=== PATIENT | female | born 1985 | race Caucasian/White ===

== ENCOUNTER 2017-08-07 01:30 | Inpatient (IN) | payer MEDICAID ==
[~2017-08-07] VITALS: Ht 165.1 cm; Wt 88.5 kg
[2017-08-07 01:34] VITALS: BP 127/86
--- NOTE | 2017-08-07 01:43 | NUR ---
PT TAKEN TO BED 4.
--- NOTE | 2017-08-07 01:44 | NUR ---
32Y F BIB FAMILY C/O SYNCOPE EPISODE AT HOME. FAMILY WAS PRESENT. PT AND FAMILY DENIES ANY LOC. PT AAOX X 4. PT STATES THIS IS FIRST OCCURRANCE. PT DENIES ANY DIARRHEA BUT DID CLAIM SOME NAUSEA AND VOMITING. PT STATES PT HAS ALSO BEEN FEELING DIZZY X 2 DAYS. PT BREATHING IS CLEAR BILAT. PT AMBULATED TO ER BED WITH STEADY GAIT.
--- NOTE | 2017-08-07 01:44 | NUR ---
Luciano rojo in ED - 08/07/17 at 0144 by [facility] Patient being evaluated by Dr. Horan at bedside.
--- NOTE | 2017-08-07 01:44 | NUR ---
Patient being evaluated by Dr. Grossman at bedside.
[2017-08-07] MEDS ORDERED: ONDANSETRON 4 MG/2 ML VIAL IVP ONE (01:50)
[2017-08-07] MEDS ORDERED: NACL 0.9% 1,000 ML IV ONE (01:50)
[2017-08-07 02:06] LABS: HEMATOCRIT 39.6 % (36-48); HEMOGLOBIN 12.7 g/dL (12.0-16.0); MEAN CORPUSCULAR HEMOGLOBIN 27 pg (27-31); MEAN CORPUSCULAR HGB CONC 32 g/dL (33-37); MEAN CORPUSCULAR VOLUME 85 fL (80-94); PLATELET COUNT (AUTO) 350 K/uL (140-450); RED BLOOD CELL COUNT(AUTO) 4.66 MIL/uL (4.20-5.40); RED CELL DISTRIBUTION WIDTH 12.9 % (11.6-13.7)
[2017-08-07 02:16] LABS: APPEARANCE,URINE HAZY (CLEAR); BILIRUBIN,URINE NEGATIVE (NEGATIVE); BLOOD, URINE NEGATIVE (NEGATIVE); COLOR,URINE YELLOW (YELLOW); LEUKOCYTE ESTERASE ,URINE NEGATIVE (NEGATIVE); NITRITE, URINE NEGATIVE (NEGATIVE); PH,URINE 6.5 (5.0-9.0); UGLUCOSE NEGATIVE (NEGATIVE)
[2017-08-07 02:18] LABS: ANION GAP 12.7 (8-16); CARBON DIOXIDE 27.8 mmol/L (21-32); CREATININE 0.9 mg/dL (0.6-1.3); POTASSIUM 3.5 mmol/L (3.5-5.1)
[2017-08-07 02:26] LABS: LYMPHOCYTES % (MANUAL) 10 % (20-46); MONOCYTES % (MANUAL) 4 % (5-12)
[2017-08-07 02:27] LABS: BARBITURATE, URINE NEG. ng/ml (NEG <=200); BENZODIAZEPINE, URINE NEG. ng/mL (NEG <=200); CANNABINOID, URINE NEG. ng/mL (NEG <=50); COCAINE, URINE NEG. ng/mL (NEG <=300); OPIATE, URINE NEG. ng/mL (NEG <=2000); PHENCYCLIDINE SCREEN,URINE NEG. ng/mL (NEG <=25)
--- NOTE | 2017-08-07 02:27 | NUR ---
PT TAKEN TO CT VIA W/C.
--- NOTE | 2017-08-07 02:27 | NUR ---
PT SENT TO CT WITH TECH VIA W/C AAOX4 AT THIS TIME.
[2017-08-07 02:32] LABS: ALBUMIN 3.7 g/dL (3.4-5.0); THYROID STIMULATING HORMONE 1.74 uIU/mL (0.34-3.74); TOTAL BILIRUBIN 0.2 mg/dL (0.0-1.0)
[2017-08-07 02:33] LABS: RBC,URINE 0-5 (RARE) /HPF (0-5)
[2017-08-07 02:34] LABS: FINE GRANULAR CASTS,URINE 0-10 /LPF (None Seen)
--- NOTE | 2017-08-07 02:42 | NUR ---
PT BACK FROM CT.
[2017-08-07 02:45] LABS: ACETAMINOPHEN < 0.5 ug/ml (10-30); SALICYLATE < 2.8 mg/dL (2.8-20.0)
[2017-08-07] MEDS ORDERED: cefTRIAXone 1,000 MG VIAL ONE (03:06)
--- NOTE | 2017-08-07 03:52 | NUR ---
Patient will be admitted to care of DR VALENTIN. Admited to MS 112. Will go to room 112. Belongings list completed. Report to LAURA SOW .
[2017-08-07 04:00] VITALS: BP 107/70
--- NOTE | 2017-08-07 04:00 | NUR ---
PATIENT ADMITTED TO THE UNIT FROM ER. PATIENT IS AWAKE, ALERT, ORIENTED. AMBULATORY. NO SIGNS AND SYMPTOMS OF DISTRESS NOTED. NO COMPLAINTS OF PAIN AT THIS TIME. IV SITE NOTED ON LEFT AC, ASYMPTOMATIC, INTACT AND PATENT. SKIN IS INTACT. BED IN LOWEST POSITION, SIDE RAILS UP AND CALL LIGHT WITHIN REACH. WILL CONTINUE TO MONITOR.
[2017-08-07] MEDS ORDERED: INFLUENZA VIRUS VACCINE QUAD 0.5 ML SYR IMVAC PRN (04:50)
--- NOTE | 2017-08-07 05:00 | NUR ---
CHECKED ON PATIENT. PATIENT SAID SHE WAS HUNGRY. PATIENT ON REGULAR DIET. CHECKED WITH REGIONAL SALES EXECUTIVE FOR AVAILABLE FOOD.
[2017-08-07] MEDS: DEXT 5% / NACL 0.45% 1,000 ML IV SCH ×2 (05:14→19:59)
--- NOTE | 2017-08-07 07:07 | NUR ---
PATIENT REPORT GIVEN TO MORNING NURSE. PATIENT IS IN STABLE CONDITION.
--- NOTE | 2017-08-07 07:15 | NUR ---
RECEIVED PATIENT REPORT FROM NIGHT NURSE. PT ASLEEP AND SHOWED NO S/S OF ACUTE DISTRESS ON ROOM AIR. IV NOTED ON THE LEFT AC, PATENT, INTACT, AND INFUSING WELL. FAMILY MEMBER AT BEDSIDE. BED IN LOW POSITION, CALL LIGHT WITHIN REACH. WILL CONTINUE TO MONITOR.
--- NOTE | 2017-08-07 07:27 | NUR ---
PATIENT HAS BEEN SCREENED AND CATEGORIZED LOW NUTRITION RISK. PATIENT WILL BE SEEN WITHIN 7 DAYS OF ADMISSION. 08/13/[address]
[2017-08-07 09:45] VITALS: BP 103/64
[2017-08-07] MEDS ORDERED: LORazepam 2 MG/ML VIAL IVP PRN (10:30)
[2017-08-07] MEDS ORDERED: ONDANSETRON 4 MG/2 ML VIAL IVP PRN (10:30)
--- NOTE | 2017-08-07 11:00 | NUR ---
PT RESTING IN BED, NO S/S OF ACUTE DISTRESS NOTED. AT BEDSIDE.
[2017-08-07 12:50] LABS: CREATINE KINASE MB 0.1 ng/mL (0-3.6)
--- NOTE | 2017-08-07 13:00 | NUR ---
IV ON THE LEFT AC IS LEAKING, DC'ED, TIP INTACT, PRESSURE APPLIED. STARTED A NEW IV ON THE LEFT HAND, GAUGE 20, ONE ATTEMPT. PT TOLERATED WELL.
--- NOTE | 2017-08-07 15:00 | NUR ---
HELPED PT TO THE RESTROOM. NO ACUTE S/S OF DISTRESS NOTED.
[2017-08-07 16:00] VITALS: BP 111/66
--- NOTE | 2017-08-07 19:31 | NUR ---
PT ENDORSED TO THE EMPLOYEE RELATIONS ADVISOR, REPORT GIVEN AT BEDSIDE. PT IS IN STABLE CONDITION AND NO S/S OF ACUTE DISTRESS.
[2017-08-07] MEDS ORDERED: MECLIZINE 25 MG TAB PO PRN (19:35)
--- NOTE | 2017-08-07 19:35 | NUR ---
RECEIVED HANDOFF REPORT FROM AM RN. PATIENT A&OX4. PATIENT DENIES PAIN, STATES DIZZINESS. MD AWARE. WILL MEDICATE ORDERED. IV SITE PATENT AND INTACT. NO SIGNS OR SYMPTOMS OF ACUTE DISTRESS NOTED. CALL LIGHT WITHIN REACH. WILL CONTINUE TO MONITOR.
--- NOTE | 2017-08-07 21:59 | NUR ---
I HAVE EXPLAINED TO THE PATIENT THE RISKS AND CONSEQUENCES INVOLVED IN LEAVING THE HOSPITAL AT THIS TIME, THE BENEFITS OF CONTINUED TREATMENT AND HOSPITALIZATION, AND THE ALTERNATIVES TO CONTINUED TREATMENT, HOWEVER, PATIENT DECIDED TO LEAVE THE FACILITY ANYWAY DUE TO LACK OF CHILDCARE. AT BEDSIDE. PATIENT IN STABLE CONDITION. NOTIFIED ARMAMENT AIRCRAFT MECHANIC, CHARGE NURSE, PRIMARY MD, GAS REGULATOR REPAIRER HELPER CONSULT, AND NEURO CONSULT.
--- NOTE | 2017-08-08 12:53 | NUR ---
RETRO H&P, ER REPORT AND CONSULT FAXED TO [facility] [phone] PHONE [phone]
== END 2017-08-07 21:57 | disposition left against medical advice (07) | DRG 204 ==
LOC: MED 01:30 → MTU 03:46
PROVIDERS: ADMIT Preventive Medicine Preventive Medicine/Occupational Environmental Medicine; ATTEND Preventive Medicine Preventive Medicine/Occupational Environmental Medicine
DX: R55 Syncope and collapse (principal); N39.0 Urinary tract infection, site not specified; D72.829 Elevated white blood cell count, unspecified; J40 Bronchitis, not specified as acute or chronic; R73.9 Hyperglycemia, unspecified; Z53.21 Procedure and treatment not carried out due to patient leaving prior to being seen by health care provider; Z98.51 Tubal ligation status
CPT/HCPCS: 36415; 70450; 71010; 80053; 80305; 81001; 81025; 82550; 82553; 83605; 83690; 84443; 84484; 85025; 87040; 87081; 87086; 87804; 93005; 93880; 96361; 96365; 96375; 99285; G0480; J0696; J2405; J7030; J7060; J8597; Q0092

== ENCOUNTER 2018-08-10 11:57 | Emergency (ER) | payer MEDICAID ==
[~2018-08-10] VITALS: Ht 165.1 cm; Wt 103.6 kg
[2018-08-10 12:08] VITALS: BP 124/89
[2018-08-10] MEDS ORDERED: KETOROLAC 30 MG/ML VIAL IVP ONE (12:40)
[2018-08-10] MEDS ORDERED: NACL 0.9% 500 ML IV ONE (12:40)
[2018-08-10] MEDS ORDERED: ONDANSETRON 4 MG/2 ML VIAL IVP ONE (12:40)
[2018-08-10 13:33] LABS: BASOPHILS # (AUTO) 0.1 K/uL (0.00-0.22); BASOPHILS % (AUTO) 0.6 % (0.0-2.0); EOSINOPHILS # (AUTO) 0.2 K/uL (0-0.4); EOSINOPHILS % (AUTO) 2.6 % (0.0-4.0); HEMATOCRIT 37.8 % (36-48); HEMOGLOBIN 12.2 g/dL (12.0-16.0); LYMPHOCYTES # (AUTO) 2.6 K/uL (2.5-16.5); LYMPHOCYTES % (AUTO) 29.3 % (20.5-51.1); MEAN CORPUSCULAR HEMOGLOBIN 28 pg (27-31); MEAN CORPUSCULAR HGB CONC 32 g/dL (33-37); MEAN CORPUSCULAR VOLUME 85.2 fL (80-94); MONOCYTES # (AUTO) 0.6 K/uL (0.8-1.0); NEUTROPHILS # (AUTO) 5.4 K/uL (1.8-7.7); NEUTROPHILS % (AUTO) 60.5 % (42.2-75.2); PLATELET COUNT (AUTO) 287 K/uL (140-450); RED BLOOD CELL COUNT(AUTO) 4.43 MIL/uL (4.20-5.40); RED CELL DISTRIBUTION WIDTH 13.8 % (11.6-13.7); WHITE BLOOD COUNT (AUTO) 8.9 K/uL (4.8-10.8)
[2018-08-10 13:41] LABS: ANION GAP 9.5 (8-16); CARBON DIOXIDE 27.2 mmol/L (21-32); CREATININE 0.6 mg/dL (0.6-1.3); POTASSIUM 3.7 mmol/L (3.5-5.1)
[2018-08-10 13:47] LABS: ALBUMIN 3.3 g/dL (3.4-5.0); TOTAL BILIRUBIN 0.2 mg/dL (0.0-1.0)
[2018-08-10 14:45] VITALS: BP 108/65
== END 2018-08-10 14:45 | disposition home or self-care (01) ==
LOC: MED 11:57
DX: R10.9 Unspecified abdominal pain (principal); R11.0 Nausea
CPT/HCPCS: 36415; 71045; 76705; 80053; 81002; 81025; 83690; 85025; 96374; 96375; 99285; J1885; J2405; J7030; Q0092

== ENCOUNTER 2023-04-29 22:23 | Emergency (ER) | payer MEDICAID ==
[~2023-04-29] VITALS: Ht 165.1 cm; Wt 95.3 kg
[2023-04-29 22:27] VITALS: BP 122/81; PULSE 83; RESP 17; TEMP 98.4; O2SAT 99
--- NOTE | 2023-04-29 22:30 | NUR ---
TO LOBBY A/W BED AMBULATORY
--- NOTE | 2023-04-29 23:09 | NUR ---
URINE WALKED TO LAB.
[2023-04-29 23:25] LABS: BASOPHILS # (AUTO) 0.1 K/uL (0.00-0.22); EOSINOPHILS # (AUTO) 0.2 K/uL (0-0.4); EOSINOPHILS % (AUTO) 1.8 % (0.0-4.0); HEMATOCRIT 33.7 % (36-48); HEMOGLOBIN 10.8 g/dL (12.0-16.0); LYMPHOCYTES # (AUTO) 3.5 K/uL (2.5-16.5); LYMPHOCYTES % (AUTO) 30.6 % (20.5-51.1); MEAN CORPUSCULAR HEMOGLOBIN 26 pg (27-31); MEAN CORPUSCULAR HGB CONC 32 g/dL (33-37); MONOCYTES # (AUTO) 0.8 K/uL (0.8-1.0); MONOCYTES % (AUTO) 6.7 % (1.7-9.3); NEUTROPHILS # (AUTO) 6.9 K/uL (1.8-7.7); NEUTROPHILS % (AUTO) 59.9 % (42.2-75.2); PLATELET COUNT (AUTO) 374 K/uL (140-450); RED BLOOD CELL COUNT(AUTO) 4.22 MIL/uL (4.20-5.40); RED CELL DISTRIBUTION WIDTH 15.9 % (11.6-13.7); WHITE BLOOD COUNT (AUTO) 11.5 K/uL (4.8-10.8)
--- NOTE | 2023-04-29 23:37 | NUR ---
PT AMBULATED TO ER BED 9
[2023-04-29 23:39] LABS: ALBUMIN 3.2 g/dL (3.4-5.0); ANION GAP 14.9 (8-16); CARBON DIOXIDE 25.9 mmol/L (21-32); CREATININE 0.7 mg/dL (0.6-1.3); POTASSIUM 3.8 mmol/L (3.5-5.1); TOTAL BILIRUBIN 0.2 mg/dL (0.0-1.0)
[2023-04-29 23:41] VITALS: O2SAT 99
--- NOTE | 2023-04-29 23:44 | NUR ---
37 YO F BIB SELF C/O RUQ ABD PAIN RADIATING TO CENTER ABDOMEN, NAUSEA, DIARRHEA X 2 DAYS. PT ALSO STATES R SHOULDER PAIN X 2 DAYS. AXO4. PT AMBULATES INDEPENDENTLY. CALL LIGHT WITHIN REACH. FAMILY MEMBER AT BEDSIDE. ON BEDSIDE PLC TECHNICIAN. SAFETY MEASURES IN PLACE. NKDA NO MED HX.
--- NOTE | 2023-04-30 | NUR ---
IV START 20G L AC.
[2023-04-30 01:06] LABS: APPEARANCE,URINE CLEAR (CLEAR); BILIRUBIN,URINE NEGATIVE (NEGATIVE); BLOOD, URINE NEGATIVE (NEGATIVE); COLOR,URINE YELLOW (YELLOW); LEUKOCYTE ESTERASE ,URINE NEGATIVE (NEGATIVE); NITRITE, URINE NEGATIVE (NEGATIVE); UGLUCOSE NEGATIVE (NEGATIVE)
[2023-04-30] MEDS ORDERED: KETOROLAC 30 MG/ML VIAL IVP ONE (01:10)
--- NOTE | 2023-04-30 02:12 | NUR ---
PT LYING IN BED ASLEEP WITH NO S/S PAIN OR DISTRESS. CALL LIGHT WITHIN REACH. ON BEDSIDE IC DESIGNER STANDARD CELLS. SAFETY MEASURES IN PLACE.
[2023-04-30 02:39] VITALS: O2SAT 98
[2023-04-30] MEDS ORDERED: MORPHINE SULFATE 4 MG/ML SYR IVP ONE (04:05)
--- NOTE | 2023-04-30 04:14 | NUR ---
PT AWAKE IN BED WITH PAIN LEVEL 9/10. ON BEDSIDE APPLICATIONS SPECIALIST. BED IN LOWEST POSITION. CALL LIGHT WITHIN REACH.
[2023-04-30 04:53] VITALS: O2SAT 100
--- NOTE | 2023-04-30 06:22 | NUR ---
PT SLEEPING WITH NO S/S PAIN OR DISTRESS. ON BEDSIDE HORSE RIDING COACH OR INSTRUCTOR. CALL LIGHT WITHIN REACH. SAFETY MEASURES IN PLACE.
[2023-04-30 06:46] VITALS: BP 113/70; PULSE 64; RESP 14
--- NOTE | 2023-04-30 07:19 | NUR ---
Note undone in [facility] - 04/30/23 at 722 by BRIAN Pt report given to LVN. ISABEL Transfer of care at this time. Addendum: 04/30/23 at 721 by BRIAN Amendment undone in [facility] - 04/30/23 at 722 by BRIAN Pt report given to LVN. DANGELO Transfer of care at this time.
[2023-04-30] MEDS ORDERED: IMO2 PO (07:20)
[2023-04-30] MEDS ORDERED: BISM262T28 PO (07:20)
[2023-04-30] MEDS ORDERED: BEN10 PO (07:20)
--- NOTE | 2023-04-30 07:23 | NUR ---
Pt report given to SHERIF PIERSON. Transfer of care at this time.
--- NOTE | 2023-04-30 07:23 | NUR ---
REPORT RECEIVED FROM DAVON GORMAN. ASSUMED CARE AT THIS TIME
--- NOTE | 2023-04-30 07:25 | NUR ---
pt awake and at rest. states relief, denies pain at this time. on monitoring manager. bed at lowest position, bed rails upx2. call light within reach. pending ct results
[2023-04-30 07:35] VITALS: O2SAT 98
--- NOTE | 2023-04-30 07:43 | NUR ---
IV removed, catheter intact and site benign. Applied folded 4x4 gauze and tape to stop bleeding.
--- NOTE | 2023-04-30 07:44 | NUR ---
Patient discharged with v/s stable. Written and verbal after care instructions FOR ABD PAIN AND DIARRHEA given and explained. Patient alert, oriented and verbalized understanding of instructions. Ambulatory with steady gait. All questions addressed prior to discharge. ID band removed. Patient advised to follow up with PMD. Rx of BENTYL,LOPERAMIDE AND PINK BISMUTH given. Opportunity to ask questions provided and answered.
--- NOTE | 2023-04-30 10:08 | NUR ---
Chart checked and completed. The patient's care was reviewed and supervised by GIGI PANIAGUA RN.
--- NOTE | 2023-04-30 10:12 | NUR ---
The patient's care was reviewed and supervised by GIGI PANIAGUA RN.
== END 2023-04-30 07:44 | disposition home or self-care (01) ==
LOC: MED 22:23
DX: R10.31 Right lower quadrant pain (principal); R19.7 Diarrhea, unspecified; R11.0 Nausea; Z79.899 Other long term (current) drug therapy
CPT/HCPCS: 36415; 74176; 80053; 81003; 81025; 83690; 85025; 96374; 96375; 99285; J1885; J2270